=== PATIENT | male | born 1975 | race Caucasian/White ===

== ENCOUNTER 2025-01-05 21:43 | Emergency (ER) | payer BC, OTHER ==
[~2025-01-05] VITALS: Ht 175.3 cm; Wt 136.0 kg
[2025-01-05 21:50] VITALS: O2SAT 100
[2025-01-05] MEDS: ONDANSETRON HCL 4MG/2ML INJ IV ONE (22:00)
[2025-01-05] MEDS: MECLIZINE 25MG TABLET PO ONE (22:00)
[2025-01-05] MEDS: SODIUM CHLORIDE 0.9% 1,000 ML IV ONE (23:20)
[2025-01-06 00:10] LABS: BASOPHILS % 0.6 % (0.0-2.0); EOSINOPHILS % 0.4 % (0.0-5.0); HEMATOCRIT. 39.3 % (42.0-52.0); HEMOGLOBIN. 12.9 g/dL (14.0-18.0); LYMPHOCYTES % 22.9 % (20.0-50.0); MEAN PLATELET VOLUME 8.5 fl (7.4-10.4); MONOCYTES % 5.7 % (2.0-8.0); NEUTROPHILS % 70.4 % (40.0-76.0); PLATELET 221 x1000/uL (130-400); RED BLOOD CELL COUNT 4.42 mill/uL (4.7-6.1); RED CELL DISTRIBUTION WIDTH 14.1 % (11.6-14.6)
[2025-01-06 00:21] LABS: INR 1.1
[2025-01-06 00:23] LABS: CREATININE 0.8 mg/dL (0.6-1.3); UREA NITROGEN BLOOD 15 mg/dL (9-23)
[2025-01-06 00:24] LABS: TROPONIN I HIGH SENSITIVITY < 4 ng/L (3.0-53)
[2025-01-06 00:25] LABS: ASPARTATE AMINOTRANSFERASE 45 IU/L (<34)
[2025-01-06 00:26] LABS: BILIRUBIN DIRECT 0.2 mg/dL (<=3.0); BILIRUBIN TOTAL 0.6 mg/dL (0.1-1.0); PROTEIN TOTAL 6.4 g/dL (6.0-8.3)
[2025-01-06] MEDS: MECLIZINE 25MG TABLET PO NR (01:15)
[2025-01-06] MEDS: ONDANSETRON HCL 4MG/2ML INJ IV NR (01:15)
[2025-01-06] MEDS: IOHEXOL-350 100 ML BOTTLE ONE (02:34)
[2025-01-06] MEDS ORDERED: MECL-299 MT (02:37)
[2025-01-06] MEDS ORDERED: ONDA4TAB50 MT (02:37)
[2025-01-06 03:37] VITALS: BP 127/91; PULSE 78; RESP 12; TEMP 36.7; O2SAT 96
== END 2025-01-06 03:46 | disposition home or self-care (01) ==
LOC: ER 21:43
DX: R42 Dizziness and giddiness (principal); I10 Essential (primary) hypertension; E11.9 Type 2 diabetes mellitus without complications; E78.00 Pure hypercholesterolemia, unspecified
CPT/HCPCS: 80076; 80048; 80320; 85025; 85610; 85730; 36415; 71045; 96360; 96361; 99285; 84484; 70496; 70498; 70450; J7030; Q9967; J8597; J2405; G0480